=== PATIENT | male | born 1945 | race Caucasian/White ===

== ENCOUNTER 2021-10-13 14:58 | Emergency (ER) | payer MEDICARE, BC ==
[2021-10-13] MEDS ORDERED: Sodium Chloride 0.9% 1,000 ML IV SCH (16:15)
[2021-10-13 17:03] LABS: ESTIMATED GFR 63 mL/min (>60)
== END 2021-10-13 18:00 | disposition home or self-care (01) ==
LOC: JD.ED 14:58
DX: T67.1XXA Heat syncope, initial encounter (principal); E86.9 Volume depletion, unspecified; Z86.73 Personal history of transient ischemic attack (TIA), and cerebral infarction without residual deficits; Z88.8 Allergy status to other drugs, medicaments and biological substances
CPT/HCPCS: 36415; 80053; 82550; 83735; 83880; 84484; 85025; 86140; 96360; 99284; J7030; 99283